=== PATIENT | female | born 1945 ===

== ENCOUNTER 2022-11-20 07:51 | Outpatient (CLI) | payer OTHER | END 2022-11-20 07:59 | disposition home or self-care (01) | LOC: TOM 07:51 | PROVIDERS: ATTEND Internal Medicine | DX: R19.5 Other fecal abnormalities (principal); K56.50 Intestinal adhesions [bands], unspecified as to partial versus complete obstruction; Z12.11 Encounter for screening for malignant neoplasm of colon ==